=== PATIENT | female | born 1985 | race Caucasian/White ===

== ENCOUNTER → 2019-03-24 | Outpatient (CLI) | payer BC ==
[~2019-03-24] MED LIST: AMOXICILLIN875 MG PO; CEFTIN 250250 MG/TAB PO; FLONASE0.05 MG/AC NS; PHENERGAN 25 TA25 MG PO; SULFASALAZINE500 M1 PO; ZYRTEC5 MG PO
== END ==
LOC: COL.RAD 13:22
DX: R05 Cough (principal)

== ENCOUNTER → 2021-06-26 | Outpatient (CLI) | payer BC | LOC: COL.RAD 12:13 | DX: R51.9 Headache, unspecified (principal) | CPT/HCPCS: Q9967 ==

== ENCOUNTER → 2021-07-31 | Outpatient (CLI) | payer BC | LOC: COL.RAD 08:15 | DX: K50.80 Crohn's disease of both small and large intestine without complications (principal); K21.9 Gastro-esophageal reflux disease without esophagitis ==

== ENCOUNTER 2021-10-13 22:56 | Emergency (ER) | payer BC ==
[~2021-10-13] VITALS: Ht 165.1 cm; Wt 59.1 kg
[2021-10-13 23:29] LABS: BASO # 0.1 K/mm3 (0.0-0.2); EOS # 0.1 K/mm3 (0.0-0.7); GRAN # 4.7 K/mm3 (1.4-6.5); GRAN % 65.5 % (42.2-75.2); HEMATOCRIT 40.2 % (37.0-47.0); HEMOGLOBIN 13.6 g/dl (12.5-16.0); MEAN CELL VOLUME 86 fl (80.0-100.0); MEAN CORPUSCULAR HEMOGLOBIN 29 pg (27-31); MEAN CORPUSCULAR HGB CONC 34 g/dl (33.0-37.0); MEAN PLATELET VOLUME 11.1 fl (7.4-10.4); MONO # 0.3 K/mm3 (0.1-0.6); MONO % 4.4 % (1.7-9.3); PLATELET COUNT 287 K/mm3 (130-400); RED BLOOD COUNT 4.69 M/mm3 (4.10-5.30); REDCELL DISTRIBUTION WIDTH-CV 13.6 % (11.5-14.5)
[2021-10-13 23:47] LABS: ALANINE AMINOTRANSFERASE 12 U/L (0-55); ALBUMIN 3.8 gm/dL (3.5-5.0); ALKALINE PHOSPHATASE 54 U/L (40-150); ANION GAP 13 mmol/L (7-16); AST,SGOT 25 U/L (5-34); BILIRUBIN,TOTAL 0.2 mg/dL (0.2-1.2); BLOOD UREA NITROGEN 9 mg/dL (7-19); CALCIUM 8.2 mg/dL (8.4-10.2); CARBON DIOXIDE 21 mmol/L (22-29); CHLORIDE 105 mmol/L (98-107); CREATININE, serum 0.99 mg/dL (0.57-1.11); GLUCOSE 111 mg/dL (70-99); POTASSIUM 3.6 mmol/L (3.5-4.5); SODIUM 139 mmol/L (136-145); TOTAL PROTEIN 6.9 gm/dL (6.2-8.1)
[2021-10-13 23:57] LABS: ACETAMINOPHEN < 1.0 ug/mL (10-30); SALICYLATE < 5.0 mg/dL (15.0-30.0)
[2021-10-13 23:58] LABS: ALCOHOL(ethanol),MEDICAL 417 mg/dL (0-10)
[2021-10-14 00:08] LABS: TSH w REFLEX 1.137 uIU/mL (0.350-4.940)
[2021-10-14 01:24] LABS: TRICYCLIC ANTIDEPRESS URINE NEGATIVE
[2021-10-14 17:15] VITALS: TEMP 97.6
[2021-10-14 20:13] VITALS: BP 114/74; PULSE 64
== END 2021-10-14 20:00 | disposition home or self-care (01) ==
LOC: COL.ER 22:56
PROVIDERS: Emergency Medicine
DX: F10.929 Alcohol use, unspecified with intoxication, unspecified (principal); R45.851 Suicidal ideations; Y90.4 Blood alcohol level of 80-99 mg/100 ml
CPT/HCPCS: J1885; J2405; J7030; J7120

== ENCOUNTER → 2022-09-02 | Outpatient (CLI) | payer BC | LOC: COL.RAD 08:00 | DX: M54.50 Low back pain, unspecified (principal); M25.552 Pain in left hip | CPT/HCPCS: G0260; J3301 ==

== ENCOUNTER → 2022-09-16 | Outpatient (CLI) | payer BC | LOC: COL.RAD 07:52 | DX: R09.1 Pleurisy (principal); R06.02 Shortness of breath | CPT/HCPCS: G0260; J3301 ==

== ENCOUNTER 2023-06-10 08:00 | Outpatient (RCR) | payer BC | END 2023-06-14 | disposition home or self-care (01) | LOC: PT.GENESIS | DX: M47.812 Spondylosis without myelopathy or radiculopathy, cervical region (principal); M89.8X1 Other specified disorders of bone, shoulder ==

== ENCOUNTER → 2023-07-15 | Outpatient (RCR) | payer BC | END | disposition home or self-care (01) | LOC: PT.GENESIS | DX: M47.812 Spondylosis without myelopathy or radiculopathy, cervical region (principal); M89.8X1 Other specified disorders of bone, shoulder ==

== ENCOUNTER 2023-07-22 15:00 | Outpatient (RCR) | payer BC | END 2023-08-13 | disposition home or self-care (01) | LOC: PT.GENESIS | DX: M47.812 Spondylosis without myelopathy or radiculopathy, cervical region (principal); M89.8X1 Other specified disorders of bone, shoulder ==